=== PATIENT | female | born 1970 | race African-American/Black ===

== ENCOUNTER 2017-01-14 05:28 | Emergency (ER) | payer SELFPAY ==
--- NOTE | 2017-01-14 06:52 | ER Document Report ---
ED Flu Like - General Mode of Arrival: Ambulatory Information source: Patient TRAVEL OUTSIDE OF THE [place] IN LAST 30 DAYS: No - HPI Patient complains to provider of: Flu-like symptoms Onset: Last week Associated symptoms: Other - see above - General Chief Complaint: Flu Symptoms Stated Complaint: FLU LIKE SYMPTOMS Notes: 46 year old female with history of hypothyroidism presents to the ED complaining of flu like symptoms that started last week. Patient reports generalized body aches, fever, productive cough with yellow sputum that is now clear, and rhinorrhea. Patient has taken Tylenol and has been drinking fluids. Patient denies getting the flu shot this year. (MARY JO NOVA) - Related Data Allergies/Adverse Reactions: No Known Allergies Allergy (Verified 01/14/17 05:37) Past Medical History - General Information source: Patient - Social History Smoking Status: Never Smoker Chew tobacco use (# tins/day): No Frequency of alcohol use: Social Drug Abuse: None Family History: DM, Hypertension Patient has suicidal ideation: No Patient has homicidal ideation: No Endocrine Medical History: Reports: Hx Graves' Disease - On thyroid replacement. Apparently had radioactive iodine treatment, Hx Hypothyroidism Renal/ Medical History: Denies: Hx Peritoneal Dialysis GI Medical History: Reports: Hx Gastroesophageal Reflux Disease Past Surgical History: Reports: Hx Cholecystectomy, Hx Tubal Ligation - Immunizations Immunizations up to date: Yes Hx Diphtheria, Pertussis, Tetanus Vaccination: Yes Review of Systems - Review of Systems Constitutional: See HPI, Fever, Malaise EENT: See HPI, Nose discharge Cardiovascular: No symptoms reported Respiratory: See HPI, Cough, Sputum - yellow, but now is white Gastrointestinal: No symptoms reported Genitourinary: No symptoms reported Female Genitourinary: No symptoms reported Musculoskeletal: No symptoms reported Skin: No symptoms reported Hematologic/Lymphatic: No symptoms reported Neurological/Psychological: No symptoms reported -: Yes All other systems reviewed and negative Physical Exam - Vital signs Interpretation: Normal - General General appearance: Alert In distress: None - HEENT Head: Normocephalic, Atraumatic Eyes: Normal Extraocular movements intact: Yes Pupils: PERRL Ears: Normal External canal: Normal Tympanic membrane: Normal Sinus: Other - congestion. No: Normal Nasal: Other - congestion. No: Normal Pharynx: Normal Neck: Normal - Respiratory Respiratory status: No respiratory distress Breath sounds: Rhonchi - [place] when patient coughs.. No: Wheezing - Cardiovascular Rhythm: Regular Heart sounds: Normal auscultation - Abdominal Inspection: Normal - Back Back: Normal - Extremities General upper extremity: Normal inspection, Normal ROM General lower extremity: Normal inspection, Normal ROM - Neurological Neuro grossly intact: Yes - Psychological Associated symptoms: Normal affect, Normal mood - Skin Skin Temperature: Warm Skin Moisture: Dry Skin Color: Normal - Vital signs Vitals: Temp Pulse Resp BP Pulse Ox 97.7 F 77 16 109/80 100 01/14/17 05:30 01/14/17 05:30 01/14/17 05:30 01/14/17 05:30 01/14/17 05:30 Discharge - Discharge Clinical Impression: Influenza-like illness Additional Instructions: Influenza-like Viral Syndrome: The physician has diagnosed a viral infection. Viruses not only cause "colds," but can cause many different symptoms including generalized aching, fever, headache, cough, diarrhea, nausea, vomiting, and fatigue. The treatment, for the most part, is simply relief of symptoms. This means that antibiotics are usually not given. Rest, fluids, pain medications and, occasionally, medication for the specific symptoms that are most bothersome will be prescribed. Use good handwashing to avoid passing the virus to others. Shared toys should be cleaned with disinfectant. Clean the toilets, sinks, and counter surfaces in bathrooms. Launder clothing in hot water. Contact the physician if you develop any new or unusual symptoms such as severe headache, stiff neck, high fever, chest pain, productive cough, or shortness of breath. You should be rechecked if you don't see marked improvement within seven to 10 days. DRINK PLENTY OF FLUIDS. GET PLENTY OF REST AND SLEEP. TAKE MOTRIN OR ALEVE FOR BODY ACHES. TAKE THE MEDICATION PRESCRIBED FOR COUGH. TAKE PLAIN ROBITUSSIN EXPECTORANT TO LOOSEN MUCUS. FOLLOW UP WITH A LOCAL MEDICAL DOCTOR IF NOT IMPROVING. RETURN TO THE EMERGENCY ROOM IF ANY NEW OR WORSENING SYMPTOMS. Prescriptions: Hydrocodone/Acetaminophen [Hydrocodon-Acetaminophen 5-325] 1 each PO Q4 PRN #15 tablet PRN Reason: Forms: Return to Work Scribe Attestation: 01/14/17 06:56 I personally performed the services described in the documentation, reviewed and edited the documentation which was dictated to the scribe in my presence, and it accurately records my words and actions. (DARIN CARTY) Scribe Documentation - Scribe Written by Rajani:: Rajani Bonds, 01/14/2017 0709 acting as scribe for :: Danelle
[2017-01-14 07:27] VITALS: BP 114/81
== END 2017-01-14 07:12 | disposition home or self-care (01) ==
LOC: ER 05:28
DX: J11.1 Influenza due to unidentified influenza virus with other respiratory manifestations (principal); R50.9 Fever, unspecified; R05 Cough; J34.89 Other specified disorders of nose and nasal sinuses; R52 Pain, unspecified; R53.81 Other malaise; R09.81 Nasal congestion; R09.89 Other specified symptoms and signs involving the circulatory and respiratory systems
CPT/HCPCS: 99283

== ENCOUNTER 2017-04-13 09:35 | Emergency (ER) | payer SELFPAY ==
--- NOTE | 2017-04-13 10:05 | ER Document Report ---
ED General <ROBERTA PÉREZ - Last Filed: 04/13/17 10:19> - General Mode of Arrival: Ambulatory Information source: Patient TRAVEL OUTSIDE OF THE [place] IN LAST 30 DAYS: No - HPI Onset: Other - Refer to HPI notes Associated symptoms: Vomiting Similar symptoms previously: No Recently seen / treated by doctor: No <MIRZA ZAMBRANO - Last Filed: 04/13/17 10:39> - General Chief Complaint: Chest Pain > 30 Stated Complaint: CHEST/BACK PAIN/HEADACHE Time Seen by Provider: 04/13/17 09:55 Notes: Patient is a 46 year old female presenting to the emergency department for back and chest pain. Patient states her pain started in her back on Wednesday. Patient' s pain then radiated into her chest. Patient describes her pain as shooting and it is exacerbated with movement. Patient states she is short of breath and her pain takes her breath away. Patient also had an episode of vomiting on Wednesday. Patient's pain is constant and she has had no relief. Patient denies any injury or recent fall. Patient has a history of Grave's Disease, cholecystectomy, and tubal ligation. (MIRZA ZAMBRANO) - Related Data Allergies/Adverse Reactions: No Known Allergies Allergy (Verified 04/13/17 09:41) Past Medical History - General Information source: Patient - Social History Smoking Status: Never Smoker Family History: DM, Hypertension Patient has suicidal ideation: No Patient has homicidal ideation: No Endocrine Medical History: Reports: Hx Graves' Disease - On thyroid replacement. Apparently had radioactive iodine treatment, Hx Hypothyroidism GI Medical History: Reports: Hx Gastroesophageal Reflux Disease Past Surgical History: Reports: Hx Cholecystectomy, Hx Tubal Ligation - Immunizations Immunizations up to date: Yes Hx Diphtheria, Pertussis, Tetanus Vaccination: Yes <MIRZA ZAMBRANO - Last Filed: 04/13/17 10:39> Review of Systems - Review of Systems Constitutional: No symptoms reported EENT: No symptoms reported Cardiovascular: See HPI, Chest pain Respiratory: See HPI Gastrointestinal: See HPI, Nausea, Vomiting Genitourinary: No symptoms reported Female Genitourinary: No symptoms reported Musculoskeletal: See HPI, Back pain Skin: No symptoms reported Hematologic/Lymphatic: No symptoms reported Neurological/Psychological: No symptoms reported -: Yes All other systems reviewed and negative <MIRZA ZAMBRANO - Last Filed: 04/13/17 10:39> Physical Exam <ROBERTA PÉREZ - Last Filed: 04/13/17 10:19> <MIRZA ZAMBRANO - Last Filed: 04/13/17 10:39> - Vital signs Vitals: Temp Pulse Resp BP Pulse Ox 98.1 F 65 18 114/69 100 04/13/17 10:12 04/13/17 10:12 04/13/17 10:12 04/13/17 10:12 04/13/17 10:12 - Notes Notes: GENERAL: Alert, interacts well. No acute distress. HEAD: Normocephalic, atraumatic. EYES: Pupils equal, round, and reactive to light. Extraocular movements intact. ENT: Oral mucosa moist, tongue midline. NECK: Full range of motion. Supple. Trachea midline. LUNGS: Reproducible right anterior chest wall tenderness with palpation. Clear to auscultation bilaterally, no wheezes, rales, or rhonchi. No respiratory distress. HEART: Regular rate and rhythm. No murmurs, gallops, or rubs. ABDOMEN: Soft, non-tender. Non-distended. Bowel sounds present in all 4 quadrants. BACK: Reproducible right scapular muscle tenderness with palpation. EXTREMITIES: Moves all 4 extremities spontaneously. No calf tenderness, no edema. NEUROLOGICAL: Alert and oriented x3. Normal speech. PSYCH: Normal affect, normal mood. SKIN: Warm, dry, normal turgor. No rashes or lesions noted. (MIRZA ZAMBRANO) Course - Diagnostic Test Radiology reviewed: Image reviewed - NAD - EKG Interpretation by Sc EKG shows normal: Sinus rhythm Rate: Normal - Rate 71, normal sinus rhythm without ST abnormalities. Interpretation normal <ROBERTA PÉREZ - Last Filed: 04/13/17 10:19> <[email or web address] - Last Filed: 04/13/17 10:39> - Re-evaluation Re-evalutation: 04/13/17 10:10 Patient's exam suggests chest wall and back pain as it is completely reproducible by palpation as with movement of the torso. PE can be ruled out by PERC and well's criteria. Aftercare discussion and warning signs given to patient. (ROBERTA PÉREZ) - Vital Signs Vital signs: Temp Pulse Resp BP Pulse Ox 98.1 F 65 18 114/69 100 04/13/17 10:12 04/13/17 10:12 04/13/17 10:12 04/13/17 10:12 04/13/17 10:12 Discharge <ROBERTA PÉREZ - Last Filed: 04/13/17 10:19> <MIRZA ZAMBRANO - Last Filed: 04/13/17 10:39> - Discharge Clinical Impression: Right-sided chest wall pain Condition: Good Disposition: HOME, SELF-CARE Instructions: Anti-Inflammatory Medication ([facility]), Chest Wall Pain ([facility]) Prescriptions: Ibuprofen 800 mg PO Q8HP PRN #15 tablet PRN Reason: Methocarbamol [Robaxin 750 mg Tablet] 750 - 1,500 mg PO Q8HP PRN #20 tablet PRN Reason: For Pain Referrals: [facility] [Provider Group] - Follow up as needed Scribe Documentation - Scribe Written by Scribe:: Rajani Gomez 04/13/17 10:02 acting as scribe for :: Piero <MIRZA ZAMBRANO - Last Filed: 04/13/17 10:39>
[2017-04-13 10:12] VITALS: BP 114/69
[2017-04-13] MEDS ORDERED: IBUPROFEN 800 MG TABLET PO ONE (10:18)
--- NOTE | 2017-04-13 10:21 | RADIOLOGY REPORT (SQ) ---
EXAM DESCRIPTION: CHEST PA/LAT COMPLETED DATE/TIME: 04/13/2017 10:09 am REASON FOR STUDY: CP COMPARISON: 02/28/2016 EXAM PARAMETERS: NUMBER OF VIEWS: two views TECHNIQUE: Digital Frontal and Lateral radiographic views of the chest acquired. RADIATION DOSE: NA LIMITATIONS: none FINDINGS: LUNGS AND PLEURA: No opacities, masses or pneumothorax. No pleural effusion. MEDIASTINUM AND HILAR STRUCTURES: No masses or contour abnormalities. HEART AND VASCULAR STRUCTURES: Heart normal size. No evidence for failure. BONES: No acute findings. HARDWARE: None in the chest. OTHER: No other significant finding. IMPRESSION: NO SIGNIFICANT RADIOGRAPHIC FINDING IN THE CHEST. TECHNICAL DOCUMENTATION: JOB ID: [id number] [employer]- All Rights Reserved
--- NOTE | 2017-04-13 17:15 | EKG REPORT ---
SEVERITY:- NORMAL ECG - SINUS RHYTHM : Confirmed by: Ghada Daly MD 13-Apr-2017 17:14:22
== END 2017-04-13 10:30 | disposition home or self-care (01) ==
LOC: ER 09:35
DX: R07.89 Other chest pain (principal); M54.9 Dorsalgia, unspecified; R51 Headache; R06.02 Shortness of breath
CPT/HCPCS: 71020; 93005; 93010; 99285

== ENCOUNTER 2017-05-05 09:29 | Emergency (ER) | payer SELFPAY ==
--- NOTE | 2017-05-05 10:24 | ER Document Report ---
ED General - General Mode of Arrival: Ambulatory Information source: Patient TRAVEL OUTSIDE OF THE [place] IN LAST 30 DAYS: No - HPI Onset: Other - No synthroid in over a month Quality of pain: Achy Severity: Moderate Pain Level: 3 Associated symptoms: Body/muscle aches, Nonproductive cough, Headache, Rhinnorhea, Sore throat, Other - Dry skin sleepy all the time body aches and headache Exacerbated by: Denies Relieved by: Denies Similar symptoms previously: Yes Recently seen / treated by doctor: No <DANIEL MARTIN - Last Filed: 05/05/17 18:44> <FANNY CRAIG - Last Filed: 05/13/17 23:07> - General Chief Complaint: Medication Refill Stated Complaint: MEDICATION REFILL Time Seen by Provider: 05/05/17 09:59 Notes: Headaches sleepiness fell at times achy no menses since February 20 and dry skin. Patient states she was on thyroid medicine Synthroid but the doctors he was given it to her closed his office and she procrastinated and did not get a new doctor and now she has run out of refills. (DANIEL MARTIN) - Related Data Allergies/Adverse Reactions: No Known Allergies Allergy (Verified 05/05/17 09:42) Past Medical History - General Information source: Patient - Social History Smoking Status: Never Smoker Chew tobacco use (# tins/day): No Frequency of alcohol use: None Drug Abuse: None Lives with: Alone Family History: DM, Hypertension Patient has suicidal ideation: No Patient has homicidal ideation: No - Past Medical History Cardiac Medical History: Reports: None Pulmonary Medical History: Reports: None EENT Medical History: Reports: None Neurological Medical History: Reports: None Endocrine Medical History: Reports: Hx Graves' Disease - On thyroid replacement. Apparently had radioactive iodine treatment, Hx Hypothyroidism Renal/ Medical History: Reports: None Malignancy Medical History: Reports: None GI Medical History: Reports: Hx Gastroesophageal Reflux Disease Musculoskeltal Medical History: Reports None Skin Medical History: Reports None Psychiatric Medical History: Reports: None Traumatic Medical History: Reports: None Infectious Medical History: Reports: None Past Surgical History: Reports: Hx Cholecystectomy, Hx Tubal Ligation - Immunizations Immunizations up to date: Yes Hx Diphtheria, Pertussis, Tetanus Vaccination: Yes <DANIEL MARTIN - Last Filed: 05/05/17 18:44> Review of Systems - Review of Systems Constitutional: Recent illness EENT: Nose discharge, Sinus discharge Cardiovascular: No symptoms reported Respiratory: Cough Gastrointestinal: No symptoms reported Genitourinary: No symptoms reported Female Genitourinary: No symptoms reported Musculoskeletal: denies: Other - ache Skin: Dryness Hematologic/Lymphatic: No symptoms reported Neurological/Psychological: No symptoms reported -: Yes All other systems reviewed and negative <DANIEL MARTIN - Last Filed: 05/05/17 18:44> Physical Exam - Vital signs Interpretation: Normal - General General appearance: Appears well, Alert - HEENT Head: Normocephalic, Atraumatic Eyes: Normal Pupils: PERRL Ears: Normal External canal: Normal Tympanic membrane: Normal Sinus: Normal Nasal: Purulent discharge, Swelling Pharynx: Post nasal drainage Neck: Normal - Respiratory Respiratory status: No respiratory distress Chest status: Nontender Breath sounds: Normal Chest palpation: Normal - Cardiovascular Rhythm: Regular Heart sounds: Normal auscultation Murmur: No - Abdominal Inspection: Normal Distension: No distension Bowel sounds: Normal Tenderness: Nontender Organomegaly: No organomegaly - Back Back: Normal, Nontender - Extremities General upper extremity: Normal inspection, Nontender, Normal color, Normal ROM , Normal temperature General lower extremity: Normal inspection, Nontender, Normal color, Normal ROM , Normal temperature, Normal weight bearing. No: Matt's sign - Neurological Neuro grossly intact: Yes Cognition: Normal Orientation: AAOx4 [place] Coma Scale Eye Opening: Spontaneous [place] Coma Scale Verbal: Oriented [place] Coma Scale Motor: Obeys Commands [place] Coma Scale Total: 15 Speech: Normal Motor strength normal: LUE, RUE, LLE, RLE Sensory: Normal - Psychological Associated symptoms: Normal affect, Normal mood - Skin Skin Temperature: Warm Skin Moisture: Dry Skin Color: Normal <DANIEL MARTIN - Last Filed: 05/05/17 18:44> Course - Laboratory Result Diagrams: 05/05/17 10:50 <DANIEL MARTIN - Last Filed: 05/05/17 18:44> - Laboratory Result Diagrams: 05/05/17 10:50 <FANNY CRAIG - Last Filed: 05/13/17 23:07> - Vital Signs Vital signs: Temp Pulse Resp BP Pulse Ox 98.1 F 68 18 113/77 100 05/05/17 14:13 05/05/17 14:13 05/05/17 14:13 05/05/17 14:13 05/05/17 09:42 - Laboratory Laboratory results interpreted by me: 05/05/17 05/05/17 10:50 10:50 Total Bilirubin 1.7 H TSH 108.00 H Free T4 0.09 L Free T3 pg/mL 0.90 L Discharge <DANIEL MARTIN - Last Filed: 05/05/17 18:44> <FANNY CRAIG - Last Filed: 05/13/17 23:07> - Discharge Clinical Impression: Hypothyroidism, Encounter for medication refill Condition: Stable Disposition: HOME, SELF-CARE Instructions: Family Physicians / Practices Additional Instructions: Hypothyroidism The thyroid gland is found in the front of the neck. It produces thyroid hormone. Thyroid hormone regulates the metabolism. Hypothyroidism means the gland is not turning out enough thyroid hormone. Too much thyroid hormone "turns up the thermostat" too high, causing weight loss, nervousness, rapid heartbeat, and weakness. Too little thyroid hormone causes fatigue, depression, weight gain, and hair thinning. Hypothyroidism is treated with thyroid replacement pills. Testing can show if there are other hormone problems, and can determine whether the pituitary gland or thyroid gland is at fault. Contact the doctor or return if you change for the worse -- for example, palpitations, severe nervousness, chest pain, shortness of breath, worsening weakness or lightheadedness. FOLLOW-UP CARE: If you have been referred to a physician for follow-up care, call the physician s office for an appointment as you were instructed or within the next two days. If you experience worsening or a significant change in your symptoms, notify the physician immediately or return to the Emergency Department at any time for re-evaluation. Prescriptions: Levothyroxine Sodium 100 mcg PO DAILY #30 tablet Forms: Elevated Blood Pressure, Return to Work
[2017-05-05 11:29] LABS: ALANINE AMINOTRANSFERASE 27 U/L (9-52); ALBUMIN 4.3 g/dL (3.5-5.0); ALKALINE PHOSPHATASE 52 U/L (38-126); ANION GAP 10 (5-19); ASPARTATE AMINO TRANSFERASE 31 U/L (14-36); BILIRUBIN,DIRECT 0.3 mg/dL (0.0-0.4); BILIRUBIN,TOTAL 1.7 mg/dL (0.2-1.3); BLOOD UREA NITROGEN 9 mg/dL (7-20); CALCIUM 9.5 mg/dL (8.4-10.2); CARBON DIOXIDE 26 mmol/L (22-30); CHLORIDE 103 mmol/L (98-107); CREATININE RESULT 0.99 mg/dL (0.52-1.25); GLUCOSE 88 mg/dL (75-110); POTASSIUM 4.4 mmol/L (3.6-5.0); SODIUM 139.4 mmol/L (137-145); TOTAL PROTEIN 7.7 g/dL (6.3-8.2)
[2017-05-05 11:51] LABS: FREE T3 0.9 pg/mL (2.77-5.27)
[2017-05-05 12:58] LABS: APPEARANCE,URINE CLEAR; BILIRUBIN,URINE NEGATIVE (NEGATIVE); GLUCOSE, URINE NEGATIVE (NEGATIVE); KETONES,URINE NEGATIVE (NEGATIVE); LEUKOCYTE ESTERASE,URINE NEGATIVE (NEGATIVE); NITRITE,URINE NEGATIVE (NEGATIVE); PROTEIN,URINE NEGATIVE (NEGATIVE); URINE SPECIFIC GRAVITY 1.008; UROBILINOGEN,URINE NEGATIVE mg/dL (<2.0)
[2017-05-05 14:16] VITALS: BP 113/77
== END 2017-05-05 14:15 | disposition home or self-care (01) ==
LOC: ER 09:29
DX: Z76.0 Encounter for issue of repeat prescription (principal); E03.9 Hypothyroidism, unspecified; R52 Pain, unspecified; R05 Cough; R51 Headache; R09.89 Other specified symptoms and signs involving the circulatory and respiratory systems; J02.9 Acute pharyngitis, unspecified; Z79.899 Other long term (current) drug therapy
CPT/HCPCS: 36415; 80053; 81001; 84439; 84443; 84481; 84703; 99282

== ENCOUNTER 2018-06-11 17:56 | Emergency (ER) | payer SELFPAY ==
[2018-06-11] MEDS ORDERED: ONDANSETRON HCL INJ/PF 4 MG/2 ML SDV IV ONE (18:27)
[2018-06-11] MEDS ORDERED: NORMAL SALINE 1000 ML 1,000 ML IV ONE (18:27)
[2018-06-11] MEDS ORDERED: FAMOTIDINE INJ/PF 20 MG/2 ML SDV IV ONE (18:27)
--- NOTE | 2018-06-11 18:28 | ER Document Report ---
ED GI/ - General Chief Complaint: Vomiting Stated Complaint: STOMACH PAIN/VOMITING Time Seen by Provider: 06/11/18 18:02 Notes: 47-year-old female to the emergency department complaining of nausea and vomiting. Symptoms have been present for approximately 1 week. Cannot seem to keep anything down. Mild pain in the epigastric region. Patient had some diarrhea but none at this time. Patient denies any fever, chills, sweats. Denies any other major symptoms at this time. Denies any shortness of breath or chest pain. States that she does feel a little bit tired. Thinks that maybe she is going through menopause at this time. TRAVEL OUTSIDE OF THE [place] IN LAST 30 DAYS: No - HPI Patient complains to provider of: Abdominal pain, Vomiting Timing/Duration: Gradual, Constant, Waxing and waning Quality of pain: Achy - Related Data Allergies/Adverse Reactions: No Known Allergies Allergy (Verified 06/11/18 17:56) Past Medical History - General Information source: Patient - Social History Smoking Status: Never Smoker Cigarette use (# per day): No Frequency of alcohol use: Social Drug Abuse: None Lives with: Family Family History: DM, Hypertension Patient has suicidal ideation: No Patient has homicidal ideation: No Endocrine Medical History: Reports: Hx Graves' Disease - On thyroid replacement. Apparently had radioactive iodine treatment, Hx Hypothyroidism Renal/ Medical History: Denies: Hx Peritoneal Dialysis GI Medical History: Reports: Hx Gastroesophageal Reflux Disease Past Surgical History: Reports: Hx Cholecystectomy, Hx Thyroid Surgery, Hx Tubal Ligation - Immunizations Immunizations up to date: Yes Hx Diphtheria, Pertussis, Tetanus Vaccination: Yes Review of Systems - Review of Systems Constitutional: Malaise. denies: Fever, Weakness EENT: denies: Eye pain, Difficulty swallowing, Throat swelling, Mouth pain Cardiovascular: denies: Chest pain, Palpitations, Heart racing, Orthopnea, Syncope, Dizziness, Lightheaded, Edema Respiratory: denies: Cough, Hurts to breathe, Short of breath, Wheezing Gastrointestinal: Abdominal pain, Diarrhea, Nausea, Vomiting Genitourinary: denies: Burning, Dysuria, Flank pain, Hematuria Musculoskeletal: denies: Back pain, Joint pain, Muscle pain Skin: denies: Dryness, Lesions, Lumps, Rash Hematologic/Lymphatic: denies: Anemia, Blood clots, Easy bleeding, Easy bruising Neurological/Psychological: denies: Confusion, Weakness, Numbness Physical Exam - Vital signs Vitals: Temp Pulse Resp BP Pulse Ox 99.1 F 75 18 123/83 100 06/11/18 17:59 06/11/18 17:59 06/11/18 17:59 06/11/18 17:59 06/11/18 17:59 Interpretation: Normal - General General appearance: Appears well, Alert - HEENT Head: Normocephalic, Atraumatic Eyes: Normal Pupils: PERRL - Respiratory Respiratory status: No respiratory distress Chest status: Nontender Breath sounds: Normal Chest palpation: Normal - Cardiovascular Rhythm: Regular Heart sounds: Normal auscultation Murmur: No - Abdominal Inspection: Normal Distension: No distension Bowel sounds: Normal Tenderness: Tender - Tenderness to palpation in the epigastric region with no guarding or rebound. Organomegaly: No organomegaly - Back Back: Normal, Nontender - Extremities General upper extremity: Normal inspection, Nontender, Normal color, Normal ROM , Normal temperature General lower extremity: Normal inspection, Nontender, Normal color, Normal ROM , Normal temperature, Normal weight bearing. No: Matt's sign - Neurological Neuro grossly intact: Yes Cognition: Normal Orientation: AAOx4 Eloy Coma Scale Eye Opening: Spontaneous Eloy Coma Scale Verbal: Oriented Eloy Coma Scale Motor: Obeys Commands Ocate Coma Scale Total: 15 Speech: Normal Motor strength normal: LUE, RUE, LLE, RLE Sensory: Normal - Psychological Associated symptoms: Normal affect, Normal mood - Skin Skin Temperature: Warm Skin Moisture: Dry Skin Color: Normal Course - Re-evaluation Re-evalutation: 06/11/18 18:45 At this time will check patient's chemistry including lipase. Based on the nausea and vomiting and patient's 47 will also check an EKG and troponin just to be safe. Will get a urinalysis and test as well. 06/11/18 19:52 Although the patient's labs are within normal limits her baseline for her. EKG unremarkable. Troponin negative. Urine culture added. Fluids and Pepcid given. Will discharge on Zofran. Advised to return if developing worsening symptoms. 06/11/18 19:52 Laboratory 06/11/18 06/11/18 06/11/18 18:30 18:50 18:50 WBC 7.3 RBC 4.25 Hgb 13.4 Hct 39.7 MCV 93 MCH 31.5 MCHC 33.7 RDW 13.2 Plt Count 340 Seg Neutrophils % 53.1 Lymphocytes % 35.2 Monocytes % 10.8 Eosinophils % 0.2 Basophils % 0.7 Absolute Neutrophils 3.9 Absolute Lymphocytes 2.6 Absolute Monocytes 0.8 Absolute Eosinophils 0.0 Absolute Basophils 0.1 Sodium 143.6 Potassium 4.1 Chloride 105 Carbon Dioxide 25 Anion Gap 14 BUN 11 Creatinine 0.83 Est GFR ( Amer) > 60 Est GFR (Non-Af Amer) > 60 Glucose 92 Calcium 10.4 H Total Bilirubin 1.9 H Direct Bilirubin 0.2 Neonat Total Bilirubin Not Reportable Neonat Direct Bilirubin Not Reportable Neonat Indirect Bili Not Reportable AST 23 ALT 23 Alkaline Phosphatase 56 Troponin I Total Protein 8.1 Albumin 4.8 Lipase 186.0 Urine Color YELLOW Urine Appearance SLIGHTLY-CLOUDY Urine pH 5.0 Ur Specific Shirley 1.019 Urine Protein NEGATIVE Urine Glucose (UA) NEGATIVE Urine Ketones NEGATIVE Urine Blood NEGATIVE Urine Nitrite NEGATIVE Urine Bilirubin NEGATIVE Urine Urobilinogen 4.0 H Ur Leukocyte Esterase TRACE H Urine WBC (Auto) 1 Urine RBC (Auto) 2 Urine Bacteria (Auto) TRACE Squamous Epi Cells Auto 9 Urine Mucus (Auto) MANY Urine Ascorbic Acid NEGATIVE Urine HCG, Qual NEGATIVE 06/11/18 18:50 WBC RBC Hgb Hct MCV MCH MCHC RDW Plt Count Seg Neutrophils % Lymphocytes % Monocytes % Eosinophils % Basophils % Absolute Neutrophils Absolute Lymphocytes Absolute Monocytes Absolute Eosinophils Absolute Basophils Sodium Potassium Chloride Carbon Dioxide Anion Gap BUN Creatinine Est GFR ( Amer) Est GFR (Non-Af Amer) Glucose Calcium Total Bilirubin Direct Bilirubin Neonat Total Bilirubin Neonat Direct Bilirubin Neonat Indirect Bili AST ALT Alkaline Phosphatase Troponin I < 0.012 Total Protein Albumin Lipase Urine Color Urine Appearance Urine pH Ur Specific Shirley Urine Protein Urine Glucose (UA) Urine Ketones Urine Blood Urine Nitrite Urine Bilirubin Urine Urobilinogen Ur Leukocyte Esterase Urine WBC (Auto) Urine RBC (Auto) Urine Bacteria (Auto) Squamous Epi Cells Auto Urine Mucus (Auto) Urine Ascorbic Acid Urine HCG, Qual - Vital Signs Vital signs: Temp Pulse Resp BP Pulse Ox 99.1 F 75 18 123/83 100 06/11/18 17:59 06/11/18 17:59 06/11/18 17:59 06/11/18 17:59 06/11/18 17:59 - Laboratory Result Diagrams: 06/11/18 18:50 06/11/18 18:50 Laboratory results interpreted by me: 06/11/18 06/11/18 18:30 18:50 Calcium 10.4 H Total Bilirubin 1.9 H Urine Urobilinogen 4.0 H Ur Leukocyte Esterase TRACE H - EKG Interpretation by Me EKG shows normal: Sinus rhythm, [place], Intervals, QRS Complexes, ST-T Waves Discharge - Discharge Clinical Impression: Gastritis Qualifiers: Gastritis type: unspecified gastritis Chronicity: acute Gastritis bleeding: without bleeding Qualified Code(s): K29.00 - Acute gastritis without bleeding Condition: Good Instructions: Gastroenteritis (adult) ([facility]) Additional Instructions: In the event that your symptoms are getting worse, you develop worsening abdominal pain especially in the right upper quadrant or right lower quadrant, chest pain, shortness of breath, fever or other concerns please return in the next 24 hours for recheck. Prescriptions: Ondansetron [Zofran Odt 4 mg Tablet] 1 - 2 tab PO Q4H PRN #15 tab.rapdis PRN Reason: For Nausea/Vomiting Ranitidine HCl [Zantac] 150 mg PO BID 7 Days #14 tablet Forms: Return to Work
[2018-06-11 19:08] LABS: ABSOLUTE BASOPHILS # (AUTO) 0.1 10^3/uL (0.0-0.2); ABSOLUTE LYMPHOCYTES (AUTO) 2.6 10^3/uL (0.5-4.7); ABSOLUTE MONOCYTES (AUTO) 0.8 10^3/uL (0.1-1.4); ABSOLUTE NEUT (AUTO) 3.9 10^3/uL (1.7-8.2); BASOPHILS % (AUTO) 0.7 % (0-2); EOSINOPHILS % (AUTO) 0.2 % (0-6); HEMATOCRIT 39.7 % (36.0-47.0); HEMOGLOBIN 13.4 g/dL (12.0-15.5); LYMPHOCYTES % (AUTO) 35.2 % (13-45); MEAN CORPUSCULAR HEMOGLOBIN 31.5 pg (27.0-33.4); MEAN CORPUSCULAR HGB CONC 33.7 g/dL (32.0-36.0); MEAN CORPUSCULAR VOLUME 93 fl (80-97); MONOCYTES % (AUTO) 10.8 % (3-13); PLATELET COUNT 340 10^3/uL (150-450); RED BLOOD COUNT 4.25 10^6/uL (3.72-5.28); RED CELL DISTRIBUTION WIDTH 13.2 % (11.5-14.0); SEGMENTED NEUTROPHILS % (AUTO) 53.1 % (42-78); TOTAL CELLS COUNTED % (AUTO) 100 %; WHITE BLOOD COUNT 7.3 10^3/uL (4.0-10.5)
[2018-06-11 19:23] LABS: ALANINE AMINOTRANSFERASE 23 U/L (9-52); ALBUMIN 4.8 g/dL (3.5-5.0); ALKALINE PHOSPHATASE 56 U/L (38-126); ANION GAP 14 (5-19); ASPARTATE AMINO TRANSFERASE 23 U/L (14-36); BILIRUBIN,DIRECT 0.2 mg/dL (0.0-0.4); BILIRUBIN,TOTAL 1.9 mg/dL (0.2-1.3); BLOOD UREA NITROGEN 11 mg/dL (7-20); CALCIUM 10.4 mg/dL (8.4-10.2); CARBON DIOXIDE 25 mmol/L (22-30); CHLORIDE 105 mmol/L (98-107); GLUCOSE 92 mg/dL (75-110); POTASSIUM 4.1 mmol/L (3.6-5.0); SODIUM 143.6 mmol/L (137-145); TOTAL PROTEIN 8.1 g/dL (6.3-8.2)
[2018-06-11 19:26] LABS: APPEARANCE,URINE SLIGHTLY-CLOUDY; BILIRUBIN,URINE NEGATIVE (NEGATIVE); COLOR,URINE YELLOW; GLUCOSE, URINE NEGATIVE (NEGATIVE); KETONES,URINE NEGATIVE (NEGATIVE); LEUKOCYTE ESTERASE,URINE TRACE (NEGATIVE); NITRITE,URINE NEGATIVE (NEGATIVE); PROTEIN,URINE NEGATIVE (NEGATIVE); URINE SPECIFIC GRAVITY 1.019
[2018-06-11 20:18] VITALS: BP 118/78
--- NOTE | 2018-06-12 09:49 | EKG REPORT ---
SEVERITY:- ABNORMAL ECG - SINUS RHYTHM FIRST DEGREE AV BLOCK : Confirmed by: Jj Burton 12-Jun-2018 09:48:38
== END 2018-06-11 20:12 | disposition home or self-care (01) ==
LOC: ER 17:56
DX: K29.00 Acute gastritis without bleeding (principal); R82.71 Bacteriuria; R11.2 Nausea with vomiting, unspecified; R10.13 Epigastric pain; Z90.49 Acquired absence of other specified parts of digestive tract; R53.81 Other malaise
CPT/HCPCS: 93005; 99284; 96361; 96374; 96375; 36415; 87086; 83690; 85025; 81025; 87088; 80053; 81001; 84484; 93010; J2405; J7030; S0028

== ENCOUNTER 2019-02-13 09:52 | Emergency (ER) | payer SELFPAY ==
--- NOTE | 2019-02-13 10:17 | ER Document Report ---
ED Medical Screen (RME) - General Chief Complaint: Dizziness Stated Complaint: FATIGUE Time Seen by Provider: 02/13/19 10:12 Mode of Arrival: Ambulatory Information source: Patient Notes: Patient is a 48-year-old female with past medical history of Graves' disease who presents to the emergency department with complaints of fatigue and dizziness. Patient states she has been out of her levothyroxine for approximately 2 weeks. She states that she usually takes 112 mcg daily. Patient denies any nausea, vomiting, diarrhea or syncope. Exam: Patient alert, oriented with no acute distress noted. Lung sounds clear to auscultation bilaterally. I have greeted and performed a rapid initial assessment of this patient. A comprehensive ED assessment and evaluation of the patient, analysis of test results and completion of the medical decision making process will be conducted by additional ED providers. Dictation of this chart was performed using voice recognition software; therefore, there may be some unintended grammatical errors. TRAVEL OUTSIDE OF THE [place] IN LAST 30 DAYS: No - Related Data Allergies/Adverse Reactions: No Known Allergies Allergy (Verified 02/13/19 10:02) Past Medical History - Social History Chew tobacco use (# tins/day): No Frequency of alcohol use: Social Drug Abuse: None Endocrine Medical History: Reports: Hx Graves' Disease - On thyroid replacement. Apparently had radioactive iodine treatment, Hx Hypothyroidism Renal/ Medical History: Denies: Hx Peritoneal Dialysis GI Medical History: Reports: Hx Gastroesophageal Reflux Disease Psychiatric Medical History: Reports: Hx Depression Past Surgical History: Reports: Hx Cholecystectomy, Hx Thyroid Surgery, Hx Tubal Ligation - Immunizations Immunizations up to date: Yes Hx Diphtheria, Pertussis, Tetanus Vaccination: Yes Physical Exam - Vital signs Vitals: Temp Pulse Resp BP Pulse Ox 98.3 F 66 16 114/70 100 02/13/19 10:05 02/13/19 10:05 02/13/19 10:05 02/13/19 10:05 02/13/19 10:05 Course - Vital Signs Vital signs: Temp Pulse Resp BP Pulse Ox 98.3 F 66 16 114/70 100 02/13/19 10:05 02/13/19 10:05 02/13/19 10:05 02/13/19 10:05 02/13/19 10:05
[2019-02-13 10:37] LABS: ABSOLUTE BASOPHILS # (AUTO) 0.1 10^3/uL (0.0-0.2); ABSOLUTE EOSINOPHILS # (AUTO) 0.1 10^3/uL (0.0-0.6); ABSOLUTE LYMPHOCYTES (AUTO) 2.8 10^3/uL (0.5-4.7); ABSOLUTE MONOCYTES (AUTO) 0.6 10^3/uL (0.1-1.4); ABSOLUTE NEUT (AUTO) 1.9 10^3/uL (1.7-8.2); BASOPHILS % (AUTO) 1.8 % (0-2); EOSINOPHILS % (AUTO) 1.9 % (0-6); HEMATOCRIT 41.4 % (36.0-47.0); HEMOGLOBIN 14.2 g/dL (12.0-15.5); LYMPHOCYTES % (AUTO) 50.4 % (13-45); MEAN CORPUSCULAR HEMOGLOBIN 32.7 pg (27.0-33.4); MEAN CORPUSCULAR HGB CONC 34.3 g/dL (32.0-36.0); MEAN CORPUSCULAR VOLUME 95 fl (80-97); MONOCYTES % (AUTO) 11.6 % (3-13); PLATELET COUNT 350 10^3/uL (150-450); RED BLOOD COUNT 4.35 10^6/uL (3.72-5.28); RED CELL DISTRIBUTION WIDTH 13.9 % (11.5-14.0); SEGMENTED NEUTROPHILS % (AUTO) 34.3 % (42-78); TOTAL CELLS COUNTED % (AUTO) 100 %; WHITE BLOOD COUNT 5.5 10^3/uL (4.0-10.5)
[2019-02-13 10:56] LABS: ALANINE AMINOTRANSFERASE 20 U/L (9-52); ALBUMIN 4.4 g/dL (3.5-5.0); ALKALINE PHOSPHATASE 67 U/L (38-126); ANION GAP 7 (5-19); ASPARTATE AMINO TRANSFERASE 27 U/L (14-36); BILIRUBIN,DIRECT 0.3 mg/dL (0.0-0.4); BILIRUBIN,TOTAL 1.7 mg/dL (0.2-1.3); BLOOD UREA NITROGEN 11 mg/dL (7-20); CALCIUM 10.1 mg/dL (8.4-10.2); CARBON DIOXIDE 26 mmol/L (22-30); CHLORIDE 106 mmol/L (98-107); GLUCOSE 96 mg/dL (75-110); POTASSIUM 4.5 mmol/L (3.6-5.0); SODIUM 138.5 mmol/L (137-145); TOTAL PROTEIN 7.6 g/dL (6.3-8.2)
[2019-02-13 11:13] LABS: FREE T3 1.34 pg/mL (2.77-5.27); FREE T4 (FREE THYROXINE) 0.19 ng/dL (0.78-2.19)
[2019-02-13 11:14] VITALS: BP 114/78
[2019-02-13 11:26] LABS: THYROID STIMULATING HORMONE 85.1 uIU/mL (0.47-4.68)
--- NOTE | 2019-02-16 07:57 | ER Document Report ---
Entered by BOGDAN LOPEZ SCRIBE 02/13/19 1055 Acting as scribe for:DARIN CARTY MD ED General - General Chief Complaint: Dizziness Stated Complaint: FATIGUE Time Seen by Provider: 02/13/19 10:12 Primary Care Provider: AINSLEY MUHAMMAD MD [ACTIVE STAFF] - Follow up in 1 month Mode of Arrival: Ambulatory Information source: Patient Notes: Patient is a 48-year-old female with hypothyroidism presents to the emergency department complaining of dizziness and general fatigue. Patient states that she has been out of her medications for 2 weeks and attributes this to her symptoms. Patient states she is normally on 100 mcg of Synthroid daily. TRAVEL OUTSIDE OF THE [place] IN LAST 30 DAYS: No - Related Data Allergies/Adverse Reactions: No Known Allergies Allergy (Verified 02/13/19 10:02) Past Medical History - General Information source: Patient - Social History Smoking Status: Never Smoker Chew tobacco use (# tins/day): No Frequency of alcohol use: Social Drug Abuse: None Family History: DM, Hypertension Patient has suicidal ideation: No Patient has homicidal ideation: No Endocrine Medical History: Reports: Hx Graves' Disease - On thyroid replacement. Apparently had radioactive iodine treatment, Hx Hypothyroidism GI Medical History: Reports: Hx Gastroesophageal Reflux Disease Psychiatric Medical History: Reports: Hx Depression Past Surgical History: Reports: Hx Cholecystectomy, Hx Thyroid Surgery, Hx Tubal Ligation - Immunizations Immunizations up to date: Yes Hx Diphtheria, Pertussis, Tetanus Vaccination: Yes Review of Systems - Review of Systems Constitutional: See HPI EENT: No symptoms reported Cardiovascular: See HPI, Dizziness Respiratory: No symptoms reported Gastrointestinal: No symptoms reported Genitourinary: No symptoms reported Female Genitourinary: No symptoms reported Musculoskeletal: No symptoms reported Skin: No symptoms reported Hematologic/Lymphatic: No symptoms reported Neurological/Psychological: No symptoms reported -: Yes All other systems reviewed and negative Physical Exam - Vital signs Vitals: Temp Pulse Resp BP Pulse Ox 98.3 F 66 16 114/70 100 02/13/19 10:05 02/13/19 10:05 02/13/19 10:05 02/13/19 10:05 02/13/19 10:05 - Notes Notes: GENERAL: Alert, interacts well, appears dysthymic. No acute distress. HEAD: Normocephalic, atraumatic. EYES: Pupils equal, round, and reactive to light. Extraocular movements intact. ENT: Oral mucosa moist, tongue midline. NECK: Full range of motion. Supple. Trachea midline. LUNGS: Clear to auscultation bilaterally, no wheezes, rales, or rhonchi. No respiratory distress. HEART: Regular rate and rhythm. No murmurs, gallops, or rubs. ABDOMEN: Soft, non-tender. Non-distended. Bowel sounds present in all 4 quadrants. No guarding, rigidity, or rebound. EXTREMITIES: Moves all 4 extremities spontaneously. NEUROLOGICAL: Alert and oriented x3. Normal speech. PSYCH: Appears dysthymic. SKIN: Warm, dry, normal turgor. No rashes or lesions noted. Course - Vital Signs Vital signs: Temp Pulse Resp BP Pulse Ox 98.3 F 64 18 114/78 100 02/13/19 10:05 02/13/19 11:08 02/13/19 11:08 02/13/19 11:08 02/13/19 11:08 - Laboratory Result Diagrams: 02/13/19 10:25 02/13/19 10:25 Laboratory results interpreted by me: 02/13/19 02/13/19 02/13/19 10:25 10:25 10:25 Seg Neutrophils % 34.3 L Lymphocytes % 50.4 H Total Bilirubin 1.7 H TSH 85.10 H Free T4 0.19 L Free T3 pg/mL 1.34 L Discharge - Discharge Clinical Impression: Has run out of medications Fatigue Qualifiers: Fatigue type: unspecified Qualified Code(s): R53.83 - Other fatigue Condition: Stable Disposition: HOME, SELF-CARE Additional Instructions: Hypothyroidism The thyroid gland is found in the front of the neck. It produces thyroid hormone. Thyroid hormone regulates the metabolism. Hypothyroidism means the gland is not turning out enough thyroid hormone. Too much thyroid hormone "turns up the thermostat" too high, causing weight loss, nervousness, rapid heartbeat, and weakness. Too little thyroid hormone causes fatigue, depression, weight gain, and hair thinning. Hypothyroidism is treated with thyroid replacement pills. Testing can show if there are other hormone problems, and can determine whether the pituitary gland or thyroid gland is at fault. Contact the doctor or return if you change for the worse -- for example, palpitations, severe nervousness, chest pain, shortness of breath, worsening weakness or lightheadedness. Fatigue Fatigue can be caused by many medical and emotional problems. Fatigue can be an early symptom of infection, or can be caused by chronic infection. It can be a symptom of metabolic diseases like diabetes, hypothyroidism, or anemia. It can result from sleep problems such as sleep apnea. Fatigue can be a symptom of depression. Overuse of alcohol or caffeine can cause fatigue. Many drugs can cause fatigue, either as a side effect or when withdrawing from the drug. Until the evaluation is complete, try to keep up your normal activities. Get regular sleep hours, but avoid oversleeping. Try to get regular exercise. Eliminate alcohol, caffeine, and any unnecessary drugs, herbs, or medicines (discuss any changes in prescription medicines with your doctor). Contact the doctor if there is any change for the worse. Take the medications as prescribed. Follow-up with your doctor in the next 2 weeks for medication refills, and to evaluate your fatigue if it does not improve. RETURN TO THE EMERGENCY ROOM IF ANY NEW OR WORSENING SYMPTOMS. Prescriptions: Levothyroxine Sodium [Synthroid 0.1 mg Tablet] 0.1 mg PO DAILY #30 tablet Referrals: AINSLEY MUHAMMAD MD [ACTIVE STAFF] - Follow up in 1 month Scribe Attestation: 02/13/19 10:56 I personally performed the services described in the documentation, reviewed and edited the documentation which was dictated to the scribe in my presence, and it accurately records my words and actions. I personally performed the services described in the documentation, reviewed and edited the documentation which was dictated to the scribe in my presence, and it accurately records my words and actions.
== END 2019-02-13 11:08 | disposition home or self-care (01) ==
LOC: ER 09:52
DX: E03.9 Hypothyroidism, unspecified (principal); T38.1X6A Underdosing of thyroid hormones and substitutes, initial encounter; Z91.128 Patient's intentional underdosing of medication regimen for other reason; Z91.14 Patient's other noncompliance with medication regimen; R53.83 Other fatigue; R42 Dizziness and giddiness
CPT/HCPCS: 36415; 80053; 84439; 84443; 84481; 85025; 99283

== ENCOUNTER 2019-12-21 09:36 | Emergency (ER) | payer SELFPAY ==
[2019-12-21] MEDS ORDERED: ONDANSETRON 4 MG TAB.RAPDIS PO ONE (10:47)
--- NOTE | 2019-12-21 10:47 | ER Document Report ---
ED Medical Screen (RME) - General Chief Complaint: Nausea Stated Complaint: NAUSEA,HEAD FEELS FUNNY Time Seen by Provider: 12/21/19 10:36 TRAVEL OUTSIDE OF THE [place] IN LAST 30 DAYS: No - HPI Notes: 12/21/19 10:46 Patient is a 49-year-old female with a history of Graves' disease who presents complaining of possible syncopal episode this morning when she was getting ready for work and now feeling some dizziness and lightheadedness as well as some nausea. Patient states that she was sitting in her chair getting ready for work when she felt like someone hit her in the back of the head and then she recalls her dog barking" waking me up." Patient states that she was only out for a brief period. She otherwise is feeling well. Denies any headache, fever, obvious head injury, neck pain, changes in vision/speech/mentation/hearing, URI, sore throat, chest pain, palpitations, syncope, cough, shortness of breath, wheeze, dyspnea, abdominal pain, vomiting/diarrhea, urinary retention, dysuria, hematuria, loss of control of bowel or bladder, numbness/tingling, saddle anesthesia, muscle paralysis/weakness, or rash. I have treated and performed a rapid initial assessment of this patient. A comprehensive ED assessment and evaluation of the patient, analysis of test results and completion of medical decision making process will be conducted by additional ED providers. PHYSICAL EXAMINATION: GENERAL: Well-appearing, well-nourished and in no acute distress. A&Ox4. Answers questions appropriately. Neuro: Cranial nerves grossly intact. NIH 0. GCS 15. Heart: RRR Head/neck: Atraumatic. No tenderness to palpation. - Related Data Allergies/Adverse Reactions: No Known Allergies Allergy (Verified 02/13/19 10:02) Past Medical History Endocrine Medical History: Reports: Hx Graves' Disease - On thyroid replacement. Apparently had radioactive iodine treatment, Hx Hypothyroidism Renal/ Medical History: Denies: Hx Peritoneal Dialysis GI Medical History: Reports: Hx Gastroesophageal Reflux Disease Psychiatric Medical History: Reports: Hx Depression Past Surgical History: Reports: Hx Cholecystectomy, Hx Thyroid Surgery, Hx Tubal Ligation - Immunizations Immunizations up to date: Yes Hx Diphtheria, Pertussis, Tetanus Vaccination: Yes Physical Exam - Vital signs Vitals: Temp Pulse Resp BP Pulse Ox 98.2 F 67 16 110/79 99 02/13/20 09:41 12/21/19 09:41 12/21/19 09:41 12/21/19 09:41 12/21/19 09:41 Course - Vital Signs Vital signs: Temp Pulse Resp BP Pulse Ox 98.2 F 67 16 110/79 99 12/21/19 09:41 12/21/19 09:41 12/21/19 09:41 12/21/19 09:41 12/21/19 09:41
[2019-12-21 11:17] LABS: ABSOLUTE BASOPHILS # (AUTO) 0.1 10^3/uL (0.0-0.2); ABSOLUTE EOSINOPHILS # (AUTO) 0.1 10^3/uL (0.0-0.6); ABSOLUTE LYMPHOCYTES (AUTO) 2.6 10^3/uL (0.5-4.7); ABSOLUTE MONOCYTES (AUTO) 0.9 10^3/uL (0.1-1.4); BASOPHILS % (AUTO) 1.1 % (0-2); EOSINOPHILS % (AUTO) 1.5 % (0-6); HEMATOCRIT 39.3 % (36.0-47.0); HEMOGLOBIN 13.3 g/dL (12.0-15.5); LYMPHOCYTES % (AUTO) 46.9 % (13-45); MEAN CORPUSCULAR VOLUME 94 fl (80-97); MONOCYTES % (AUTO) 15.6 % (3-13); PLATELET COUNT 312 10^3/uL (150-450); RED BLOOD COUNT 4.17 10^6/uL (3.72-5.28); SEGMENTED NEUTROPHILS % (AUTO) 34.9 % (42-78); TOTAL CELLS COUNTED % (AUTO) 100 %; WHITE BLOOD COUNT 5.6 10^3/uL (4.0-10.5)
[2019-12-21 11:36] LABS: ALBUMIN 4.3 g/dL (3.5-5.0); ALKALINE PHOSPHATASE 61 U/L (38-126); ANION GAP 7 (5-19); ASPARTATE AMINO TRANSFERASE 24 U/L (14-36); BILIRUBIN,TOTAL 2.4 mg/dL (0.2-1.3); BLOOD UREA NITROGEN 14 mg/dL (7-20); CALCIUM 9.9 mg/dL (8.4-10.2); CARBON DIOXIDE 28 mmol/L (22-30); CHLORIDE 105 mmol/L (98-107); GLUCOSE 93 mg/dL (75-110); POTASSIUM 4.4 mmol/L (3.6-5.0); TOTAL PROTEIN 7.5 g/dL (6.3-8.2)
--- NOTE | 2019-12-21 11:42 | RADIOLOGY REPORT (SQ) ---
EXAM DESCRIPTION: CT HEAD WITHOUT COMPLETED DATE/TIME: 12/21/2019 11:19 am REASON FOR STUDY: syncopal episode, dizzy COMPARISON: 04/09/2013. TECHNIQUE: Axial images acquired through the brain without intravenous contrast. Images reviewed wi th bone, brain and subdural windows. Additional sagittal and coronal reconstructions were generated. Images stored on PACS. All CT scanners at this facility use dose modulation, iterative reconstruction, and/or weight based d osing when appropriate to reduce radiation dose to as low as reasonably achievable (ALARA). [facility]: Dose Right [facility]: CareDose [facility]: Dose Right [facility]: Teradose 4D [facility]: BioMedFlex RADIATION DOSE: CT Rad equipment meets quality standard of care and radiation dose reduction techniq ues were employed. CTDIvol: 53.2 mGy. DLP: 964 mGy-cm. mGy. LIMITATIONS: None. FINDINGS: VENTRICLES: Normal size and contour. CEREBRUM: No masses. No hemorrhage. No midline shift. No evidence for acute infarction. Normal gra y/white matter differentiation. No areas of low density in the white matter. CEREBELLUM: No masses. No hemorrhage. No alteration of density. No evidence for acute infarction. EXTRAAXIAL SPACES: No fluid collections. No masses. ORBITS AND GLOBE: No intra- or extraconal masses. Normal contour of globe without masses. CALVARIUM: No fracture. PARANASAL SINUSES: No fluid or mucosal thickening. SOFT TISSUES: No mass or hematoma. OTHER: No other significant finding. IMPRESSION: NORMAL BRAIN CT WITHOUT CONTRAST. EVIDENCE OF ACUTE STROKE: NO. COMMENT: Quality ID # [id number]: Final reports with documentation of one or more dose reduction techniques (e.g., Automated exposure control, adjustment of the mA and/or kV according to patient size, use of iterative reconstruction technique) TECHNICAL DOCUMENTATION: JOB ID: [id number] 2010 [employer]- All Rights Reserved Reading location - IP/workstation name: [email or web address]
[2019-12-21 12:03] LABS: APPEARANCE,URINE SLIGHTLY-CLOUDY; BILIRUBIN,URINE NEGATIVE (NEGATIVE); COLOR,URINE YELLOW; GLUCOSE, URINE NEGATIVE (NEGATIVE); KETONES,URINE NEGATIVE (NEGATIVE); PROTEIN,URINE NEGATIVE (NEGATIVE); URINE SPECIFIC GRAVITY 1.008; UROBILINOGEN,URINE NEGATIVE mg/dL (<2.0)
[2019-12-21] MEDS ORDERED: MECLIZINE HCL 25 MG TABLET PO ONE (13:17)
--- NOTE | 2019-12-21 13:25 | EKG REPORT ---
SEVERITY:- NORMAL ECG - SINUS RHYTHM : Confirmed by: Godfrey Caicedo MD 21-Dec-2019 13:25:12
--- NOTE | 2019-12-21 13:32 | ER Document Report ---
ED General - General Chief Complaint: Nausea Stated Complaint: NAUSEA,HEAD FEELS FUNNY Time Seen by Provider: 12/21/19 10:36 Primary Care Provider: ALEX DANGELO MD [Primary Care Provider] - Follow up as needed Notes: Patient is a 49-year-old -[place] female with a past medical history of Graves' disease on Synthroid, history of heart murmur and chronically elevated bilirubin per her report who presents to the emergency department today with a chief complaint of suspected syncopal episode. The patient reports that she was seated in a chair in her home when she felt as though someone struck her in the back of the head. She states that she awoke an unknown time later in the chair to her dog barking. She states she is felt some mild intermittent dizziness since that time as well as some generalized abdominal discomfort. She does admit to a recent change in her menses, reports it was short and irregular. She denies any urinary complaints. Denies any visual disturbances, eye hearing trouble or headache at this time. Denies any chest pain or shortness of breath. Denies any lower extremity pain or swelling. No ongoing vaginal bleeding or discharge. TRAVEL OUTSIDE OF THE [place] IN LAST 30 DAYS: No - Related Data Allergies/Adverse Reactions: No Known Allergies Allergy (Verified 02/13/19 10:02) Past Medical History - Social History Smoking Status: Unknown if Ever Smoked Frequency of alcohol use: None Drug Abuse: None Family History: DM, Hypertension Patient has suicidal ideation: No Patient has homicidal ideation: No Endocrine Medical History: Reports: Hx Graves' Disease - On thyroid replacement. Apparently had radioactive iodine treatment, Hx Hypothyroidism Renal/ Medical History: Denies: Hx Peritoneal Dialysis GI Medical History: Reports: Hx Gastroesophageal Reflux Disease Psychiatric Medical History: Reports: Hx Depression Past Surgical History: Reports: Hx Cholecystectomy, Hx Thyroid Surgery, Hx Tubal Ligation - Immunizations Immunizations up to date: Yes Hx Diphtheria, Pertussis, Tetanus Vaccination: Yes Review of Systems - Review of Systems Gastrointestinal: Abdominal pain Neurological/Psychological: Lost consciousness, Other - Dizziness -: Yes All other systems reviewed and negative Physical Exam - Vital signs Vitals: Temp Pulse Resp BP Pulse Ox 98.2 F 67 16 110/79 99 12/21/19 09:41 12/21/19 09:41 12/21/19 09:41 12/21/19 09:41 12/21/19 09:41 - General General appearance: Appears well In distress: None - HEENT Head: Normocephalic, Atraumatic Eyes: Normal Conjunctiva: Normal Extraocular movements intact: Yes Eyelashes: Normal Pupils: PERRL Ears: Normal External canal: Normal Tympanic membrane: Normal Sinus: Normal Nasal: Normal Mouth/Lips: Normal Mucous membranes: Normal Pharynx: Normal Neck: Normal. No: Carotid bruit - Respiratory Respiratory status: No respiratory distress Chest status: Nontender Breath sounds: Normal Chest palpation: Normal - Cardiovascular Rhythm: Regular Heart sounds: Normal auscultation Murmur: No - Reports history of, no murmur auscultated - Abdominal Inspection: Normal Distension: No distension Bowel sounds: Normal Tenderness: Nontender Organomegaly: No organomegaly - Back Back: Normal, Nontender - Extremities General upper extremity: Normal inspection, Nontender, Normal color, Normal ROM, Normal temperature General lower extremity: Normal inspection, Nontender, Normal color, Normal ROM, Normal temperature, Normal weight bearing. No: Matt's sign - Neurological Neuro grossly intact: Yes Cognition: Normal Orientation: AAOx4 Eloy Coma Scale Eye Opening: Spontaneous [place]oy Coma Scale Verbal: Oriented [place]oy Coma Scale Motor: Obeys Commands Chloe Coma Scale Total: 15 Speech: Normal Cranial nerves: Normal Cerebellar coordination: Normal Motor strength normal: LUE, RUE, LLE, RLE Sensory: Normal - Psychological Associated symptoms: Normal affect, Normal mood - Skin Skin Temperature: Warm Skin Moisture: Dry Skin Color: Normal Course - Re-evaluation Re-evalutation: 12/21/19 13:30 EKG interpreted by ED attending as no STEMI, sinus rhythm at 69 bpm with normal intervals at 11:05 AM. Upon my evaluation of the patient, she is resting comfortably in the room. She is in no acute distress. She reports a chronically elevated bilirubin that she has not followed up on with her outpatient primary care doctor. She is status post cholecystectomy in the past. She has a benign abdominal exam. Normal neurological exam, no focal deficits. She is low risk per the [place] syncope rule. She is stable and appropriate for discharge and outpatient follow-up. Discussed with her the importance of follow-up and advised that she return here or any ER immediately with any new, persistent or worsening symptoms. She verbalized understood and agreed. - Vital Signs Vital signs: Temp Pulse Resp BP Pulse Ox 98.2 F 67 16 110/79 99 12/21/19 09:41 12/21/19 09:41 12/21/19 09:41 12/21/19 09:41 12/21/19 09:41 - Laboratory Result Diagrams: 12/21/19 11:06 12/21/19 11:06 Laboratory results interpreted by me: 12/21/19 12/21/19 12/21/19 11:06 11:06 11:06 Lymph % (Auto) 46.9 H [place] % (Auto) 15.6 H Seg Neutrophils % 34.9 L Total Bilirubin 2.4 H TSH 0.18 L Urine Blood Leukocyte Esterase Rfl 12/21/19 11:35 Lymph % (Auto) [place] % (Auto) Seg Neutrophils % Total Bilirubin TSH Urine Blood SMALL H Leukocyte Esterase Rfl SMALL H Discharge - Discharge Clinical Impression: Possible syncopal episode, Dizziness Condition: Stable Disposition: HOME, SELF-CARE Instructions: Syncopal Episode ([facility]) Additional Instructions: Follow-up with your regular doctor in 2 to 3 days for reevaluation. Return here or any ER immediately with any new, persistent or worsening symptoms. Prescriptions: Meclizine HCl [Antivert 25 mg Tablet] 25 mg PO TID PRN #21 tablet PRN Reason: Referrals: ALEX DANGELO MD [Primary Care Provider] - Follow up as needed
[2019-12-21 13:47] VITALS: BP 115/68
== END 2019-12-21 13:58 | disposition home or self-care (01) ==
LOC: ER 09:36
DX: R42 Dizziness and giddiness (principal); N92.6 Irregular menstruation, unspecified; E05.00 Thyrotoxicosis with diffuse goiter without thyrotoxic crisis or storm; Z79.899 Other long term (current) drug therapy; R10.84 Generalized abdominal pain; Z90.49 Acquired absence of other specified parts of digestive tract
CPT/HCPCS: 93005; 36415; 84443; 85025; 81025; 80053; 81001; 70450; 93010; S0119

== ENCOUNTER 2020-08-15 07:39 | Emergency (ER) | payer SELFPAY ==
[2020-08-15] MEDS ORDERED: ONDANSETRON HCL INJ/PF 4 MG/2 ML SDV IV ONE (07:58)
[2020-08-15] MEDS ORDERED: NORMAL SALINE 1000 ML 1,000 ML IV ONE (07:58)
[2020-08-15 08:35] LABS: HEMATOCRIT 38.6 % (36.0-47.0); HEMOGLOBIN 13.4 g/dL (12.0-15.5); MEAN CORPUSCULAR HEMOGLOBIN 32.6 pg (27.0-33.4); MEAN CORPUSCULAR HGB CONC 34.7 g/dL (32.0-36.0); MEAN CORPUSCULAR VOLUME 94 fl (80-97); PLATELET COUNT 270 10^3/uL (150-450); RED BLOOD COUNT 4.11 10^6/uL (3.72-5.28); RED CELL DISTRIBUTION WIDTH 13.6 % (11.5-14.0)
[2020-08-15] MEDS ORDERED: KETOROLAC TROMETHAMINE INJ/PF 30 MG/1 ML SDV IV ONE (08:40)
--- NOTE | 2020-08-15 08:40 | ER Document Report ---
ED GI/ - General Chief Complaint: Nausea/Vomiting Stated Complaint: NAUSEA,VOMITING,DIARRHEA,HEADACHE Time Seen by Provider: 08/15/20 08:22 Primary Care Provider: ALEX DANGELO MD [Primary Care Provider] - Follow up as needed Notes: CHIEF COMPLAINT: Body ache nausea vomiting diarrhea HPI: 50-year-old female presenting for body ache nausea vomiting and diarrhea that began yesterday. 2 episodes of vomiting one episode of diarrhea. Complains of generalized myalgia. No chest pain shortness of breath cough or sore throat. No headache. Patient believed initially that her symptoms might of been related to the fact that she accidentally took a double dose of her thyroid 4 days ago. ROS: See HPI - all other systems were reviewed and are otherwise negative Constitutional: no fever Eyes: no drainage, no blurred vision ENT: no runny nose, no sore throat Cardiovascular: no chest pain Resp: no SOB, no cough GI: + vomiting, + diarrhea, no abdominal pain : no dysuria Integumentary: no rash Allergy: no hives Musculoskeletal: Positive myalgia Neurological: no numbness/tingling, no weakness MEDICATIONS: I agree with the patient medications as charted by the RN. ALLERGIES: I agree with the allergies as charted by the RN. PAST MEDICAL HISTORY/PAST SURGICAL HISTORY: Reviewed and agree as charted by RN. SOCIAL HISTORY: Reviewed and agree as charted by RN. FAMILY HISTORY: No significant familial comorbid conditions directly related to patient complaint EXAM: Reviewed vital signs as charted by RN. CONSTITUTIONAL: Alert and oriented and responds appropriately to questions. Well-appearing; well-nourished HEAD: Normocephalic; atraumatic EYES: PERRL; Conjunctivae clear, sclerae non-icteric ENT: normal nose; no rhinorrhea; moist mucous membranes; pharynx without lesions noted, no uvula edema or deviation, no tonsillar hypertrophy, phonation normal NECK: Supple without meningismus; non-tender; no cervical lymphadenopathy, no masses CARD: RRR; no murmurs, no clicks, no rubs, no gallops; symmetric distal pulses RESP: Normal chest excursion without splinting or tachypnea; breath sounds clear and equal bilaterally; no wheezes, no rhonchi, no rales, pulse oximetry 98% on room air not hypoxic ABD/GI: Normal bowel sounds; non-distended; soft, mild generalized soreness but no focal abdominal pain, no rebound, no guarding; no palpable organomegaly or masses. BACK: The back appears normal and is non-tender to palpation, there is no CVA tenderness EXT: Normal ROM in all joints; non-tender to palpation; no cyanosis, no effusions, no edema SKIN: Normal color for age and race; warm; dry; good turgor; generalized myalgia on palpation NEURO: Moves all extremities equally; Motor and sensory function intact PSYCH: The patient's mood and manner are appropriate. Grooming and personal hyg iene are appropriate. MDM: 50-year-old female nausea vomiting diarrhea with myalgia likely a viral etiology unlikely that this is from the patient doubling her dose one time of her Synthroid 4 days ago. She is otherwise been taking her Synthroid normally as she is supposed to. Baseline screening labs urinalysis will hydrate patient treat nausea. Will give Toradol for pain. Will obtain COVID study TRAVEL OUTSIDE OF THE [place] IN LAST 30 DAYS: No - Related Data Allergies/Adverse Reactions: No Known Allergies Allergy (Verified 02/13/19 10:02) Past Medical History - Social History Smoking Status: Never Smoker Frequency of alcohol use: Social Drug Abuse: None Family History: DM, Hypertension Endocrine Medical History: Reports: Hx Graves' Disease - On thyroid replacement. Apparently had radioactive iodine treatment, Hx Hypothyroidism Renal/ Medical History: Denies: Hx Peritoneal Dialysis GI Medical History: Reports: Hx Gastroesophageal Reflux Disease Psychiatric Medical History: Reports: Hx Depression Past Surgical History: Reports: Hx Cholecystectomy, Hx Thyroid Surgery, Hx Tubal Ligation - Immunizations Immunizations up to date: Yes Hx Diphtheria, Pertussis, Tetanus Vaccination: Yes Physical Exam - Vital signs Vitals: Temp 99.1 F 08/15/20 07:43 Course - Re-evaluation Re-evalutation: 08/15/20 11:32 Tolerating oral fluids. No abdominal pain on reexam. Feels better. Lab work does not show acute abnormalities other than slight lowering of her TSH. Will have patient hold her thyroid medication for the next 2 days and call her PCP for recheck. Patient will be person under investigation for COVID-19 self quarantine at home Zofran for nausea return for worsening symptoms - Vital Signs Vital signs: Temp Pulse Resp BP Pulse Ox 99.1 F 86 16 124/75 100 08/15/20 07:45 08/15/20 07:45 08/15/20 07:45 08/15/20 07:45 08/15/20 07:45 - Laboratory Result Diagrams: 08/15/20 08:18 08/15/20 08:18 Laboratory results interpreted by me: 08/15/20 08/15/20 08/15/20 08:18 08:18 08:18 Seg Neuts % (Manual) 20 L Abs Neuts (Manual) 1.4 L Glucose 117 H Total Bilirubin 1.7 H TSH 0.02 L Urine Protein Urine Urobilinogen 08/15/20 09:43 Seg Neuts % (Manual) Abs Neuts (Manual) Glucose Total Bilirubin TSH Urine Protein 30 H Urine Urobilinogen 4.0 H Discharge - Discharge Clinical Impression: Person under investigation for COVID-19, Hyperthyroidism Vomiting Qualifiers: Vomiting type: unspecified Vomiting Intractability: non-intractable Nausea presence: with nausea Qualified Code(s): R11.2 - Nausea with vomiting, unspecified Condition: Stable Disposition: HOME, SELF-CARE Instructions: COVID-19 Guidance for Persons Under Investigation, Vomiting ([facility]) Additional Instructions: Take Zofran for any recurrent nausea vomiting hydrate well at home. You are considered a person under investigation for COVID-19 at this time, self quarantine at home pending her test results which may take 2 to 5 days. You should receive notification from the hospital about your test result. It was noted that your TSH level was slightly low today meaning that your thyroid is overactive. Your level was 0.02. Hold your thyroid medication for the next 2 days. Contact your primary care provider to schedule reevaluation of your thyroid levels and recommendations for any dose changes Prescriptions: Ondansetron [Zofran Odt 4 mg Tablet] 1 - 2 tab PO Q4H PRN #15 tab.rapdis PRN Reason: For Nausea/Vomiting Referrals: ALEX DANGELO MD [Primary Care Provider] - Follow up as needed
[2020-08-15 08:51] LABS: ALBUMIN 4.1 g/dL (3.5-5.0); ALKALINE PHOSPHATASE 57 U/L (38-126); ANION GAP 9 (5-19); ASPARTATE AMINO TRANSFERASE 27 U/L (14-36); BILIRUBIN,DIRECT 0.2 mg/dL (0.0-0.4); BILIRUBIN,TOTAL 1.7 mg/dL (0.2-1.3); BLOOD UREA NITROGEN 14 mg/dL (7-20); CALCIUM 9.3 mg/dL (8.4-10.2); CARBON DIOXIDE 25 mmol/L (22-30); CHLORIDE 104 mmol/L (98-107); GLUCOSE 117 mg/dL (75-110); POTASSIUM 4.3 mmol/L (3.6-5.0); TOTAL PROTEIN 6.9 g/dL (6.3-8.2)
[2020-08-15 09:12] LABS: ABSOLUTE LYMPHOCYTES# (MANUAL) 3.8 10^3/uL (0.5-4.7); ABSOLUTE MONOCYTES # (MANUAL) 0.7 10^3/uL (0.1-1.4); BAND NEUTROPHILS % (MANUAL) 3 % (3-5); BASOPHILS % (MANUAL) 1 % (0-2); EOSINOPHILS % (MANUAL) 1 % (0-6); LYMPHOCYTES % (MANUAL) 45 % (13-45); MONOCYTES % (MANUAL) 12 % (3-13); SEGMENTED NEUTROPHILS % (MAN) 20 % (42-78); TOTAL CELLS COUNTED 100
[2020-08-15 09:17] LABS: POIKILOCYTOSIS SLIGHT
[2020-08-15 09:18] LABS: PLATELET CLUMPS PRESENT; TARGET CELLS SLIGHT
[2020-08-15 09:19] LABS: PLATELET COMMENT ADEQUATE; PLATELET LARGE PRESENT
[2020-08-15 09:20] LABS: PLATELET GIANT PRESENT
[2020-08-15 10:10] LABS: APPEARANCE,URINE SLIGHTLY-CLOUDY; BILIRUBIN,URINE NEGATIVE (NEGATIVE); COLOR,URINE YELLOW; GLUCOSE, URINE NEGATIVE (NEGATIVE); KETONES,URINE NEGATIVE (NEGATIVE); LEUKOCYTE ESTERASE,URINE NEGATIVE (NEGATIVE); NITRITE,URINE NEGATIVE (NEGATIVE); PROTEIN,URINE 30 mg/dL (NEGATIVE); URINE SPECIFIC GRAVITY 1.026
[2020-08-15 11:48] VITALS: BP 112/81
== END 2020-08-15 11:47 | disposition home or self-care (01) ==
LOC: ER 07:39
DX: U07.1 COVID-19 (principal); E05.00 Thyrotoxicosis with diffuse goiter without thyrotoxic crisis or storm; E03.9 Hypothyroidism, unspecified; R11.2 Nausea with vomiting, unspecified; R19.7 Diarrhea, unspecified; M79.10 Myalgia, unspecified site; Z79.899 Other long term (current) drug therapy
CPT/HCPCS: 99284; 96361; 96374; 96375; 36415; 84443; 85025; 87635; 80053; 81001; J1885; J2405; J7030; C9803